=== PATIENT | male | born 1965 | race Caucasian/White ===

== ENCOUNTER 2020-05-22 07:13 | Emergency (ER) | payer OTHER, MEDICAID ==
[~2020-05-22] VITALS: Ht 167.6 cm; Wt 70.8 kg
[2020-05-22 07:35] VITALS: Ht 167.6 cm; Wt 70.8 kg
[2020-05-22 08:23] LABS: BASOPHIL % 0.3 % (0-2); PLATELET COUNT 149 x10^3mcL (130-400)
[2020-05-22 08:28] LABS: RED CELL DISTRIBUTION WIDTH 14.6 % (11.5-14.5)
[2020-05-22 09:02] LABS: CALCIUM 8.8 mg/dL (8.5-10.1); CARBON DIOXIDE 26.1 mmol/L (21-32); CHLORIDE SERUM 104 mmol/L (98-107); CREATININE SERUM 0.7 mg/dL (0.7-1.3); GFR1 > 60 mL/min; GLUCOSE SERUM 123 mg/dL (74-106); POTASSIUM SERUM 4.2 mmol/L (3.5-5.1); SODIUM SERUM 138 mmol/L (136-145)
[2020-05-22 09:07] LABS: ALBUMIN 3.6 g/dL (3.4-5.0); ALKALINE PHOSPHATASE 72 U/L (46-116); ALT/SGPT 22 U/L (16-63); AMYLASE 91 U/L (25-115); AST/SGOT 14 U/L (15-37); BILIRUBIN TOTAL 0.4 mg/dL (0.20-1.00); LIPASE 276 IU/L (73-393); TOTAL PROTEIN, SERUM 6.6 g/dL (6.4-8.2)
[2020-05-22 10:05] VITALS: BP 117/76
== END 2020-05-22 10:05 | disposition home or self-care (01) ==
LOC: ED 07:13
PROVIDERS: Emergency Medicine
DX: K29.70 Gastritis, unspecified, without bleeding (principal); D64.9 Anemia, unspecified; Z98.890 Other specified postprocedural states
CPT/HCPCS: J1885; J2270; J2405; Q9967